=== PATIENT | male | born 1960 | race Caucasian/White ===

== ENCOUNTER → 2019-11-10 | Outpatient (CLI) | payer OTHER ==
[~2019-11-10] MED LIST: ALKATAB21 PO; IBUP80TA PO
--- NOTE | 2019-11-11 04:05 | REP ---
Clinical: Right shoulder pain. Technique: Internal rotation, external rotation, and Y view of the right shoulder. Findings: Subtle spurring at the acromioclavicular joint is appreciated. The glenohumeral joint appears intact and relatively normal for age. No periarticular calcifications. Subacromial space is normal. Surrounding soft tissues are unremarkable. Impression: Essentially age-appropriate examination. Mild spurring at the acromioclavicular joint. Electronically Signed by Luis Terry MD 11/11/2019 03:58 A
== END ==
LOC: M CLY 10:32
PROVIDERS: ATTEND Family Medicine
DX: M25.711 Osteophyte, right shoulder (principal)

== ENCOUNTER 2019-11-19 09:45 | Outpatient (RCR) | payer OTHER | END 2019-12-07 | LOC: M PT 09:45 | PROVIDERS: ATTEND Family Medicine | DX: Z51.89 Encounter for other specified aftercare (principal); M25.511 Pain in right shoulder ==

== ENCOUNTER → 2020-10-05 | Outpatient (REF) | payer OTHER ==
[2020-10-05 12:30] LABS: ALBUMIN 3.9 GM/DL (3.2-5.2); ALT/SGPT 37 U/L (12-78); BILIRUBIN,TOTAL 0.3 MG/DL (0.2-1.0); BLOOD UREA NITROGEN 9 MG/DL (7-18); CALCIUM LEVEL 9.4 MG/DL (8.8-10.2); CARBON DIOXIDE LEVEL 28 MEQ/L (21-32); CHLORIDE LEVEL 107 MEQ/L (98-107); CHOLESTEROL LEVEL 215 MG/DL (<200); CHOLESTEROL RISK RATIO 4.056 (<5); GLOMERULAR FILTRATION RATE > 60.0 (>49); GLUCOSE, FASTING 85 MG/DL (70-100); HDL CHOLESTEROL 53 MG/DL (>40); LDL CHOLESTEROL 135 MG/DL (<100); NON-HDL-C 162 MG/DL; POTASSIUM SERUM 3.7 MEQ/L (3.5-5.1); SODIUM LEVEL 140 MEQ/L (136-145); TOTAL PROTEIN 7.6 GM/DL (6.4-8.2); TRIGLYCERIDES LEVEL 136 MG/DL (<150)
== END ==
LOC: M SFHCCLAY 09:55
PROVIDERS: ATTEND Family Medicine
DX: Z82.49 Family history of ischemic heart disease and other diseases of the circulatory system (principal); Z13.220 Encounter for screening for lipoid disorders; I11.9 Hypertensive heart disease without heart failure; Z80.42 Family history of malignant neoplasm of prostate; Z12.5 Encounter for screening for malignant neoplasm of prostate

== ENCOUNTER → 2020-12-14 | Outpatient (REF) | payer OTHER ==
[2020-12-14 16:29] LABS: BLOOD UREA NITROGEN 7 MG/DL (7-18); CALCIUM LEVEL 9.5 MG/DL (8.8-10.2); CARBON DIOXIDE LEVEL 27 MEQ/L (21-32); CHLORIDE LEVEL 106 MEQ/L (98-107); CREATININE FOR GFR 0.72 MG/DL (0.70-1.30); GLOMERULAR FILTRATION RATE > 60.0 (>49); GLUCOSE, FASTING 88 MG/DL (70-100); POTASSIUM SERUM 4.6 MEQ/L (3.5-5.1); SODIUM LEVEL 139 MEQ/L (136-145)
== END ==
LOC: M SFHCCLAY 11:17
PROVIDERS: ATTEND Family Medicine
DX: I11.9 Hypertensive heart disease without heart failure (principal)

== ENCOUNTER → 2020-12-22 | Outpatient (CLI) | payer OTHER ==
--- NOTE | 2020-12-22 09:50 | REP ---
INDICATION: N63.0 LT BREAST LUMP. COMPARISON: None. TECHNIQUE: MLO and CC views bilateral breasts performed with tomosynthesis. Focused left breast ultrasound performed. FINDINGS: Mild ill-defined asymmetric fibroglandular tissue is present in the left retroareolar region. Otherwise no mass or clustered microcalcifications are seen bilaterally. Focused left breast ultrasound performed in the retroareolar region at the site of a palpable lump, present for 2 weeks. Vague hypoechoic tissue is seen in the retroareolar region approximately 0.9 x 0.6 x 1.0 cm. Elastography interrogation demonstrates average KPa value of 35.3. IMPRESSION: BIRADS/ACR category 2, benign. Mammographic and sonographic findings compatible with asymmetric mild left-sided gynecomastia. No suspicious mass or clustered microcalcifications. This mammogram was interpreted with the aid of an FDA-approved computer-aided detection system. The patient letter being requested is M2. RECOMMENDATION: Clinical correlation and follow-up recommended. A negative mammogram and ultrasound should not deter biopsy if there is a clinically suspicious palpable mass present. <Electronically signed by Boris Caballero > 12/22/20 [id number]
== END ==
LOC: M WHC 07:32
PROVIDERS: ATTEND Family Medicine
DX: N63.0 Unspecified lump in unspecified breast (principal)
CPT/HCPCS: 76642; 77066; G0279

== ENCOUNTER → 2021-02-23 | Outpatient (CLI) | payer OTHER ==
[~2021-02-23] MED LIST changes: +ACET325C5 PO; +ALLE12TA31 PO
--- NOTE | 2021-02-23 12:51 | REP ---
INDICATION: UNSPECIFIED LUMP IN THE SHOULDER UNSPECIFIED QUADRANT-LAB 1. COMPARISON: None. TECHNIQUE: TWO VIEWS OF THE LEFT CLAVICLE FINDINGS: There is an old healed left clavicle fracture IMPRESSION: No acute abnormality <Electronically signed by Gregg Kennedy > 02/23/21 124
[2021-02-23 14:58] LABS: ALBUMIN 3.9 GM/DL (3.2-5.2); ALT/SGPT 54 U/L (12-78); BILIRUBIN,TOTAL 0.4 MG/DL (0.2-1.0); BLOOD UREA NITROGEN 7 MG/DL (7-18); CALCIUM LEVEL 9.8 MG/DL (8.8-10.2); CARBON DIOXIDE LEVEL 27 MEQ/L (21-32); CHLORIDE LEVEL 107 MEQ/L (98-107); FOLLICLE STIMULATING HORMONE 14.1 mIU/mL (1.4-18.1); FREE T4 0.86 NG/DL (0.76-1.46); GLOMERULAR FILTRATION RATE > 60.0 (>49); GLUCOSE, FASTING 85 MG/DL (70-100); LUTEINIZING HORMONE 8.8 mIU/mL (1.5-9.3); POTASSIUM SERUM 4.5 MEQ/L (3.5-5.1); SODIUM LEVEL 139 MEQ/L (136-145); TOTAL PROTEIN 7.6 GM/DL (6.4-8.2)
== END ==
LOC: M PLALAB 09:14
PROVIDERS: ATTEND Surgery
DX: N63.20 Unspecified lump in the left breast, unspecified quadrant (principal)

== ENCOUNTER → 2021-02-23 | Outpatient (CLI) | payer OTHER ==
[2021-02-23 08:59] VITALS: BP 144/86
--- NOTE | 2021-03-01 20:28 | ROOPDOC ---
[facility] Report Of Operation Report of Operation DATE OF PROCEDURE: 02/23/21 DIAGNOSIS: left breast palpable mass and left nipple growth PROCEDURE: ultrasound guided biopsy of the left breast palpable mass with clip placement and excisional biopsy of the left breast nipple growth SURGEON: Isaias Barraza BLOOD LOSS: minimal COMPLICATIONS: none Lidocaine 1% LOT [id number] Expiration 08/2024 Sodium Bicarbonate 8.4% LOT [id number] Expiration 08/2021 Hydromark clip LOT [id number] Expiration 06/2023 SHAPE: 4 Bx device: BARD [id number] x10 cm LOT [id number] Expiration 10/2023 Informed consent was obtained. The most common risk and possible complications including bleeding, hematoma, bruising, infection, injury to surrounding structures were explained to the patient and the patient expressed understanding. Patient was placed on the bed in the supine position. Appropriate time out was done stating patients name, date of , and the procedure to be performed. Patient confirmed location of the palpable mass in the left retroareolar area at 1-2:00. This location was marked on the skin. Patient also confirmed location of the small left nipple growth which was getting caught on his shirts and causing pain. This was also marked. The left breast was prepped and draped in the usual fashion. The ultrasound was used to confirm the sonographic correlate to the palpable lesion in the left retroareolar area at 1-2:00. Procedure was started with the ultrasound guided biopsy. Plain Lidocaine 1% and 8.4% sodium bicarbonate 10:1 mix was used to anesthetize the skin, the biopsy site and tissues along the anticipated biopsy tract. Small skin incision was made with blade number 11. BARD Marquee 14G cannula with introducer ([id number]) was inserted through the incision and advanced under the ultrasound guidance to position immediately adjacent to the lesion. Next, the introducer was removed and BARD Marquee 14G biopsy device was places in the cannula. Pre-biopsy imaging, and post-biopsy imaging were captured. Five good core biopsies were taken at various levels of the lesion. Specimen was placed in formaldehyde, labeled with appropriate biopsy site and patients name, and sent to pathology for evaluation. Next, the biopsy device was withdrawn and a clip introducer was inserted into the biopsy site via the cannula. SHAPE 4 Hydromark clip was deployed under sonographic guidance. Post-clip placement image was captured. Manual pressure over the biopsy cavity and tract was held after the clip in troducer was withdrawn. No bleeding was noted upon removal of the pressure. The incision site was closed with Chromic suture since patients chest was very hairy and Steri Strips would not hold. At this time our attention was turned toward the left nipple bothersome growth. Additional local anesthetic was used to anesthetize the skin at the growth site. Scalpel was used to excised the lesion at the skin level. The tissue defect was closed with Chromic suture. Post-biopsy mammogram of the left breast was obtained and showed clip in expected position. Postprocedural dressing was placed. Patient tolerated procedure well. Discharge instructions were discussed with the patient and the patient expressed understanding. ISAIAS BARRAZA DO Mar 01, 2021 20:28
== END ==
LOC: M WHCPRO 06:09
PROVIDERS: ATTEND Surgery
DX: N62 Hypertrophy of breast (principal); L57.0 Actinic keratosis

== ENCOUNTER → 2021-04-05 | Outpatient (REF) | payer OTHER | LOC: M LAB REF 16:09 | PROVIDERS: ATTEND Physician Assistant | DX: D49.2 Neoplasm of unspecified behavior of bone, soft tissue, and skin (principal) ==

== ENCOUNTER → 2021-08-24 | Outpatient (CLI) | payer OTHER | LOC: M WHC 10:49 | PROVIDERS: ATTEND Surgery | DX: N63.20 Unspecified lump in the left breast, unspecified quadrant (principal) ==

== ENCOUNTER → 2022-02-19 | Outpatient (CLI) | payer OTHER | LOC: M RAD 12:23 | PROVIDERS: ATTEND Physician Assistant | DX: M25.521 Pain in right elbow (principal) ==

== ENCOUNTER → 2022-11-29 | Outpatient (REF) | payer OTHER ==
[2022-11-29 17:51] LABS: HEMATOCRIT 43.6 % (42.0-52.0); HEMOGLOBIN 14.4 g/dl (13.5-17.5); MEAN CORPUSCULAR HEMOGLOBIN 33.3 pg (27.0-33.0); MEAN CORPUSCULAR VOLUME 100.7 fl (80.0-96.0); PLATELET COUNT, AUTOMATED 236 10^3/uL (150-450); RED BLOOD COUNT 4.33 10^6/uL (4.30-6.10); WHITE BLOOD COUNT 8.6 10^3/uL (4.0-10.0)
[2022-11-29 18:00] LABS: ALBUMIN 3.7 G/DL (3.2-5.2); ALKALINE PHOSPHATASE 76 U/L (46-116); ALT/SGPT 32 U/L (7.0-40); AST/SGOT 28 U/L (<34); BILIRUBIN,TOTAL 0.6 MG/DL (0.3-1.2); BLOOD UREA NITROGEN 11 MG/DL (9-23); CALCIUM LEVEL 9.5 MG/DL (8.3-10.6); CARBON DIOXIDE LEVEL 28 MMOL/L (20-31); CHLORIDE LEVEL 104 MMOL/L (98-107); CHOLESTEROL LEVEL 250 MG/DL (<200); CREATININE FOR GFR 0.83 MG/DL (0.70-1.30); GLOMERULAR FILTRATION RATE > 60.0 (>49); GLUCOSE, FASTING 88 MG/DL (74-106); HDL CHOLESTEROL 62.4 MG/DL (>40); LDL CHOLESTEROL 162.8 MG/DL (<100); NON-HDL-C 187.6 MG/DL; POTASSIUM SERUM 4.1 MMOL/L (3.5-5.1); SODIUM LEVEL 136 MMOL/L (136-145); TOTAL PROTEIN 7.1 G/DL (5.7-8.2); TRIGLYCERIDES LEVEL 124 MG/DL (<150)
[2022-11-29 18:02] LABS: TOTAL 25(OH) VITAMIN D 13.6 NG/ML (20.0-100.0)
[2022-11-29 18:04] LABS: URIC ACID 8.1 MG/DL (3.7-9.2)
== END ==
LOC: M SFHCCLAY 13:11
PROVIDERS: ATTEND Nurse Practitioner Family
DX: Z87.39 Personal history of other diseases of the musculoskeletal system and connective tissue (principal); M24.549 Contracture, unspecified hand; I10 Essential (primary) hypertension; E55.9 Vitamin D deficiency, unspecified; Z80.42 Family history of malignant neoplasm of prostate; F17.211 Nicotine dependence, cigarettes, in remission; N62 Hypertrophy of breast

== ENCOUNTER → 2023-03-08 | Outpatient (REF) | payer OTHER ==
[2023-03-08 17:32] LABS: BASO # 0.1 10^3/uL (0.0-0.2); BASO % 0.6 % (0.0-1.0); EOS # 0.1 10^3/uL (0.0-0.5); EOS % 1.1 % (0.0-3.0); HEMATOCRIT 44.5 % (42.0-52.0); HEMOGLOBIN 14.7 g/dl (13.5-17.5); LYMPH # 1.6 10^3/uL (1.5-5.0); LYMPH % 19.2 % (24.0-44.0); MEAN CORPUSCULAR HEMOGLOBIN 33.9 pg (27.0-33.0); MEAN CORPUSCULAR VOLUME 102.5 fl (80.0-96.0); MONO # 0.9 10^3/uL (0.0-0.8); MONO % 10.2 % (2.0-8.0); NEUTROPHILS # 5.8 10^3/uL (1.5-8.5); NEUTROPHILS % 68.5 % (36.0-66.0); PLATELET COUNT, AUTOMATED 264 10^3/uL (150-450); RED BLOOD COUNT 4.34 10^6/uL (4.30-6.10); WHITE BLOOD COUNT 8.5 10^3/uL (4.0-10.0)
[2023-03-08 18:02] LABS: ALBUMIN 3.7 G/DL (3.2-5.2); ALKALINE PHOSPHATASE 88 U/L (46-116); ALT/SGPT 33 U/L (7.0-40); AST/SGOT 23 U/L (<34); BILIRUBIN,TOTAL 0.7 MG/DL (0.3-1.2); BLOOD UREA NITROGEN 9 MG/DL (9-23); CALCIUM LEVEL 9.8 MG/DL (8.3-10.6); CARBON DIOXIDE LEVEL 25 MMOL/L (20-31); CHLORIDE LEVEL 103 MMOL/L (98-107); CREATININE FOR GFR 0.86 MG/DL (0.70-1.30); GLOMERULAR FILTRATION RATE > 60.0 (>49); GLUCOSE, FASTING 90 MG/DL (74-106); MAGNESIUM LEVEL 2.1 MG/DL (1.8-2.4); POTASSIUM SERUM 4.3 MMOL/L (3.5-5.1); SODIUM LEVEL 138 MMOL/L (136-145)
== END ==
LOC: M SFHCCAPE 09:46
PROVIDERS: ATTEND Physician Assistant
DX: R25.2 Cramp and spasm (principal)

== ENCOUNTER 2023-06-15 09:28 | Emergency (ER) | payer OTHER ==
[~2023-06-15 09:28] MED LIST changes: +ANOR1AER INH; +FLON1SPR; +FLUT22IN INH; +META0.52 PO; +MUCI1TAB16 PO; +PROA1AER2 INH
[2023-06-15 10:45] LABS: BASO % 0.2 % (0.0-1.0); EOS # 0.1 10^3/uL (0.0-0.5); EOS % 0.6 % (0.0-3.0); HEMATOCRIT 44.2 % (42.0-52.0); HEMOGLOBIN 15.1 g/dl (13.5-17.5); LYMPH # 1.9 10^3/uL (1.5-5.0); LYMPH % 17.5 % (24.0-44.0); MEAN CORPUSCULAR HEMOGLOBIN 34.1 pg (27.0-33.0); MEAN CORPUSCULAR HGB CONC 34.2 g/dl (32.0-36.5); MEAN CORPUSCULAR VOLUME 99.8 fl (80.0-96.0); MONO % 9.3 % (2.0-8.0); NEUTROPHILS # 7.9 10^3/uL (1.5-8.5); NEUTROPHILS % 71.6 % (36.0-66.0); PLATELET COUNT, AUTOMATED 327 10^3/uL (150-450); RED BLOOD COUNT 4.43 10^6/uL (4.30-6.10)
[2023-06-15 10:55] LABS: ALBUMIN 3.5 G/DL (3.2-5.2); ALKALINE PHOSPHATASE 73 U/L (46-116); ALT/SGPT 82 U/L (7.0-40); AST/SGOT 48 U/L (<34); BILIRUBIN,DIRECT 0.1 MG/DL (<0.4); BILIRUBIN,TOTAL 0.5 MG/DL (0.3-1.2); BLOOD UREA NITROGEN 19 MG/DL (9-23); CALCIUM LEVEL 9.5 MG/DL (8.3-10.6); CARBON DIOXIDE LEVEL 24 MMOL/L (20-31); CHLORIDE LEVEL 105 MMOL/L (98-107); CREATININE FOR GFR 0.72 MG/DL (0.70-1.30); GLOMERULAR FILTRATION RATE > 60.0 (>49); GLUCOSE, FASTING 88 MG/DL (74-106); POTASSIUM SERUM 4.3 MMOL/L (3.5-5.1); SODIUM LEVEL 137 MMOL/L (136-145); TOTAL PROTEIN 6.9 G/DL (5.7-8.2)
[2023-06-15 10:57] LABS: THYROID STIMULATING HORMONE 3.246 uIU/ML (0.55-4.78); THYROXINE (T4) 6.6 UG/DL (4.5-10.9)
[2023-06-15 11:08] LABS: INR 0.95; PROTHROMBIN TIME 12.4 SECONDS (12.5-14.5)
[2023-06-15 11:57] LABS: MAGNESIUM LEVEL 2.3 MG/DL (1.8-2.4)
[2023-06-15 12:44] LABS: CK-MB VALUE MASS < 1.0 NG/ML (<3.6); CPK CREATINE PHOSPHOKINASE 47 U/L (46-171); MB/CK RELATIVE INDEX 2.12 (< OR =4)
[2023-06-15 13:38] VITALS: BP 197/91; TEMP 98; O2SAT 99
== END 2023-06-15 13:40 | disposition home or self-care (01) ==
LOC: M ED 09:28
DX: R00.1 Bradycardia, unspecified (principal); I49.1 Atrial premature depolarization; J44.9 Chronic obstructive pulmonary disease, unspecified; Z87.891 Personal history of nicotine dependence; Z79.52 Long term (current) use of systemic steroids; Z79.899 Other long term (current) drug therapy

== ENCOUNTER → 2023-08-06 | Outpatient (REF) | payer OTHER | LOC: M LAB REF 13:23 | PROVIDERS: ATTEND Internal Medicine Pulmonary Disease | DX: J44.1 Chronic obstructive pulmonary disease with (acute) exacerbation (principal); B95.3 Streptococcus pneumoniae as the cause of diseases classified elsewhere ==

== ENCOUNTER → 2023-09-04 | Outpatient (CLI) | payer OTHER | LOC: M RAD 14:33 | PROVIDERS: ATTEND Internal Medicine Pulmonary Disease | DX: Z13.820 Encounter for screening for osteoporosis (principal); Z87.891 Personal history of nicotine dependence ==

== ENCOUNTER → 2023-09-05 | Outpatient (REF) | payer OTHER | LOC: M LAB REF 16:42 | PROVIDERS: ATTEND Internal Medicine Pulmonary Disease | DX: J44.1 Chronic obstructive pulmonary disease with (acute) exacerbation (principal) ==

== ENCOUNTER → 2023-09-20 | Outpatient (REF) | payer OTHER ==
[2023-09-20 17:22] LABS: ALBUMIN 3.6 G/DL (3.2-5.2); ALKALINE PHOSPHATASE 52 U/L (46-116); ALT/SGPT 53 U/L (7.0-40); AST/SGOT 28 U/L (<34); BILIRUBIN,TOTAL 0.6 MG/DL (0.3-1.2); BLOOD UREA NITROGEN 20 MG/DL (9-23); CALCIUM LEVEL 9.5 MG/DL (8.3-10.6); CARBON DIOXIDE LEVEL 28 MMOL/L (20-31); CHLORIDE LEVEL 105 MMOL/L (98-107); CREATININE FOR GFR 0.91 MG/DL (0.70-1.30); GLOMERULAR FILTRATION RATE > 60.0 (>49); GLUCOSE, FASTING 101 MG/DL (74-106); POTASSIUM SERUM 4.7 MMOL/L (3.5-5.1); SODIUM LEVEL 138 MMOL/L (136-145); TOTAL PROTEIN 6.8 G/DL (5.7-8.2)
[2023-09-20 17:59] LABS: BASO % 0.2 % (0.0-1.0); EOS % 0.2 % (0.0-3.0); HEMATOCRIT 44.2 % (42.0-52.0); HEMOGLOBIN 14.6 g/dl (13.5-17.5); LYMPH # 1.3 10^3/uL (1.5-5.0); LYMPH % 12.9 % (24.0-44.0); MEAN CORPUSCULAR HEMOGLOBIN 34.6 pg (27.0-33.0); MEAN CORPUSCULAR VOLUME 104.7 fl (80.0-96.0); MONO # 0.6 10^3/uL (0.0-0.8); MONO % 5.8 % (2.0-8.0); NEUTROPHILS % 80.4 % (36.0-66.0); PLATELET COUNT, AUTOMATED 248 10^3/uL (150-450); RED BLOOD COUNT 4.22 10^6/uL (4.30-6.10); WHITE BLOOD COUNT 9.9 10^3/uL (4.0-10.0)
== END ==
LOC: M SFHCCLAY 12:20
PROVIDERS: ATTEND Nurse Practitioner Family
DX: Z01.818 Encounter for other preprocedural examination (principal)

== ENCOUNTER 2023-10-08 05:59 | Day surgery (SDC) | payer OTHER ==
[~2023-10-08] VITALS: Ht 182.9 cm; Wt 92.7 kg
[~2023-10-08 05:59] MED LIST changes: +FLUT12AE3 IH
[2023-10-08] MEDS ORDERED: SUGAMMADEX SODIUM 500 MG/5 ML VIAL (BRIDION) As Ordered ONE (07:14)
[2023-10-08] MEDS ORDERED: LIDOCAINE 2% 100MG/5ML SDV (FOR ANES.) As Ordered ONE (07:14)
[2023-10-08] MEDS ORDERED: fentaNYL 100 MCG/2 ML INJECTION As Ordered ONE (07:14)
[2023-10-08] MEDS ORDERED: propofoL 200 MG/20 ML VIAL As Ordered ONE (07:14)
[2023-10-08] MEDS ORDERED: ROCURONIUM BROMIDE 50MG/5ML VIAL As Ordered ONE (07:14)
[2023-10-08] MEDS ORDERED: MIDAZOLAM INJ 2MG/2ML VIAL As Ordered ONE (07:14)
[2023-10-08] MEDS ORDERED: KETOROLAC 60MG 2ML VIAL As Ordered ONE (07:15)
[2023-10-08] MEDS ORDERED: ONDANSETRON 4MG 2ML VIAL As Ordered ONE (07:15)
[2023-10-08] MEDS: LR 1,000 ML IV SCH (07:15)
[2023-10-08] MEDS: ceFAZolin SOD 2 GM in IV 1 EA IV ONE (07:43)
[2023-10-08] MEDS ORDERED: ACETAMINOPHEN 1000MG 100ML IV BAG As Ordered ONE (07:49)
[2023-10-08] MEDS ORDERED: HYDROmorphone HCL 2MG/ML 1ML VIAL As Ordered ONE (08:03)
[2023-10-08] MEDS ORDERED: fentaNYL 100 MCG/2 ML INJECTION IV PRN (09:45)
[2023-10-08] MEDS ORDERED: LR 1,000 ML IV SCH (09:45)
[2023-10-08] MEDS ORDERED: HYDROMORPHONE HCL 0.5 MG/ 0.5 ML SYRINGE IV PRN (09:45)
[2023-10-08] MEDS: ONDANSETRON 4MG 2ML VIAL IV PRN (10:33)
[2023-10-08] MEDS: oxyCODONE 5MG TAB PO PRN (10:33)
[2023-10-08 11:15] VITALS: BP 169/79; TEMP 97; O2SAT 96
== END 2023-10-08 11:25 | disposition home or self-care (01) ==
LOC: M SDC 05:59
PROVIDERS: ATTEND Surgery
DX: K40.00 Bilateral inguinal hernia, with obstruction, without gangrene, not specified as recurrent (principal); K42.0 Umbilical hernia with obstruction, without gangrene; I10 Essential (primary) hypertension; J44.9 Chronic obstructive pulmonary disease, unspecified; M10.9 Gout, unspecified; Z79.899 Other long term (current) drug therapy; Z79.51 Long term (current) use of inhaled steroids
CPT/HCPCS: 49614; 49650; C1781; J0131; J0665; J0690; J1100; J1170; J1885; J2250; J2405; J3010

== ENCOUNTER → 2023-12-26 | Outpatient (REF) | payer OTHER ==
[2023-12-26 18:38] LABS: URIC ACID 9.1 MG/DL (3.7-9.2)
[2023-12-26 18:45] LABS: ALBUMIN 3.7 G/DL (3.2-5.2); ALKALINE PHOSPHATASE 72 U/L (46-116); ALT/SGPT 33 U/L (7.0-40); AST/SGOT 18 U/L (<34); BILIRUBIN,TOTAL 0.6 MG/DL (0.3-1.2); BLOOD UREA NITROGEN 15 MG/DL (9-23); CALCIUM LEVEL 10.7 MG/DL (8.3-10.6); CARBON DIOXIDE LEVEL 30 MMOL/L (20-31); CHLORIDE LEVEL 104 MMOL/L (98-107); CHOLESTEROL LEVEL 278 MG/DL (<200); CHOLESTEROL RISK RATIO 4.22 (<5); CREATININE FOR GFR 0.99 MG/DL (0.70-1.30); GLOMERULAR FILTRATION RATE > 60.0 (>49); GLUCOSE, FASTING 99 MG/DL (74-106); HDL CHOLESTEROL 65.8 MG/DL (>40); LDL CHOLESTEROL 170.8 MG/DL (<100); NON-HDL-C 212.2 MG/DL; POTASSIUM SERUM 4.8 MMOL/L (3.5-5.1); SODIUM LEVEL 139 MMOL/L (136-145); TOTAL PROTEIN 6.9 G/DL (5.7-8.2); TRIGLYCERIDES LEVEL 207 MG/DL (<150)
[2023-12-26 18:58] LABS: HEMOGLOBIN A1c 5.2 % (4.0-6.0)
== END ==
LOC: M SFHCCLAY 10:00
PROVIDERS: ATTEND Nurse Practitioner Family
DX: J43.9 Emphysema, unspecified (principal); M24.549 Contracture, unspecified hand; Z87.39 Personal history of other diseases of the musculoskeletal system and connective tissue; I10 Essential (primary) hypertension; E78.5 Hyperlipidemia, unspecified; R74.8 Abnormal levels of other serum enzymes; Z80.42 Family history of malignant neoplasm of prostate

== ENCOUNTER → 2024-05-13 | Outpatient (REF) | payer MEDICARE, OTHER | LOC: M LAB REF 12:34 | PROVIDERS: ATTEND Internal Medicine Pulmonary Disease | DX: J44.9 Chronic obstructive pulmonary disease, unspecified (principal) ==

== ENCOUNTER → 2024-06-27 | Outpatient (REF) | payer MEDICARE | LOC: M SFHCCLAY 10:00 | PROVIDERS: ATTEND Nurse Practitioner Family | DX: J43.9 Emphysema, unspecified (principal); M24.549 Contracture, unspecified hand; Z87.39 Personal history of other diseases of the musculoskeletal system and connective tissue; I10 Essential (primary) hypertension; E78.5 Hyperlipidemia, unspecified; R74.8 Abnormal levels of other serum enzymes; Z80.42 Family history of malignant neoplasm of prostate; F51.01 Primary insomnia ==

== ENCOUNTER → 2024-07-14 | Outpatient (REF) | payer MEDICARE ==
[2024-07-14 18:55] LABS: ALBUMIN 3.4 G/DL (3.2-5.2); ALKALINE PHOSPHATASE 86 U/L (40-129); ALT/SGPT 47 U/L (7.0-40); AST/SGOT 26 U/L (<34); BILIRUBIN,TOTAL 0.6 MG/DL (0.3-1.2); BLOOD UREA NITROGEN 15 MG/DL (9-23); CARBON DIOXIDE LEVEL 27 MMOL/L (20-31); CHLORIDE LEVEL 105 MMOL/L (98-107); CHOLESTEROL LEVEL 217 MG/DL (<200); CREATININE FOR GFR 0.86 MG/DL (0.70-1.30); GLOMERULAR FILTRATION RATE > 60.0 (>49); GLUCOSE, FASTING 94 MG/DL (74-106); HDL CHOLESTEROL 65.6 MG/DL (>40); NON-HDL-C 151.4 MG/DL; POTASSIUM SERUM 4.2 MMOL/L (3.5-5.1); SODIUM LEVEL 142 MMOL/L (136-145); TOTAL PROTEIN 7.1 G/DL (5.7-8.2); TRIGLYCERIDES LEVEL 252 MG/DL (<150)
== END ==
LOC: M SFHCCLAY 12:14
PROVIDERS: ATTEND Nurse Practitioner Family
DX: I10 Essential (primary) hypertension (principal); J43.9 Emphysema, unspecified; M24.549 Contracture, unspecified hand; Z87.39 Personal history of other diseases of the musculoskeletal system and connective tissue; E78.5 Hyperlipidemia, unspecified; R74.8 Abnormal levels of other serum enzymes; Z80.42 Family history of malignant neoplasm of prostate; F51.01 Primary insomnia

== ENCOUNTER → 2024-09-01 | Outpatient (REF) | payer MEDICARE ==
[2024-09-01 17:31] LABS: BASO # 0.1 10^3/uL (0.0-0.2); BASO % 0.6 % (0.0-1.0); EOS # 0.1 10^3/uL (0.0-0.5); EOS % 0.8 % (0.0-3.0); HEMATOCRIT 38.6 % (42.0-52.0); LYMPH # 1.9 10^3/uL (1.5-5.0); LYMPH % 18.1 % (24.0-44.0); MEAN CORPUSCULAR HEMOGLOBIN 33.5 pg (27.0-33.0); MEAN CORPUSCULAR HGB CONC 33.7 g/dl (32.0-36.5); MEAN CORPUSCULAR VOLUME 99.5 fl (80.0-96.0); MONO # 1.1 10^3/uL (0.0-0.8); MONO % 10.3 % (2.0-8.0); NEUTROPHILS # 7.4 10^3/uL (1.5-8.5); NEUTROPHILS % 69.9 % (36.0-66.0); PLATELET COUNT, AUTOMATED 260 10^3/uL (150-450); RED BLOOD COUNT 3.88 10^6/uL (4.30-6.10); WHITE BLOOD COUNT 10.5 10^3/uL (4.0-10.0)
[2024-09-01 17:36] LABS: ALBUMIN 3.2 G/DL (3.2-5.2); ALKALINE PHOSPHATASE 91 U/L (40-129); ALT/SGPT 31 U/L (7.0-40); AST/SGOT 22 U/L (<34); BILIRUBIN,TOTAL 0.5 MG/DL (0.3-1.2); BLOOD UREA NITROGEN 11 MG/DL (9-23); CARBON DIOXIDE LEVEL 25 MMOL/L (20-31); CHLORIDE LEVEL 107 MMOL/L (98-107); CHOLESTEROL LEVEL 177 MG/DL (<200); CHOLESTEROL RISK RATIO 3.68 (<5); CREATININE FOR GFR 0.77 MG/DL (0.70-1.30); GLOMERULAR FILTRATION RATE > 60.0 (>49); GLUCOSE, FASTING 81 MG/DL (74-106); LDL CHOLESTEROL 72.8 MG/DL (<100); MAGNESIUM LEVEL 1.8 MG/DL (1.8-2.4); POTASSIUM SERUM 3.8 MMOL/L (3.5-5.1); SODIUM LEVEL 140 MMOL/L (136-145); TOTAL PROTEIN 6.5 G/DL (5.7-8.2); TRIGLYCERIDES LEVEL 281 MG/DL (<150)
[2024-09-01 17:37] LABS: THYROID STIMULATING HORMONE 2.292 uIU/ML (0.55-4.78)
[2024-09-01 17:39] LABS: FREE T4 1.05 NG/DL (0.89-1.76)
== END ==
LOC: M SFHCCLAY 13:00
PROVIDERS: ATTEND Nurse Practitioner Family
DX: R00.2 Palpitations (principal); R19.7 Diarrhea, unspecified; E78.00 Pure hypercholesterolemia, unspecified

== ENCOUNTER → 2024-09-09 | Outpatient (REF) | payer MEDICARE ==
[2024-09-09 20:32] LABS: FERRITIN 333.6 NG/ML (10.5-307.3); FOLATE 14.3 NG/ML (>5.4)
[2024-09-09 20:34] LABS: PERCENT SATURATION 46.9 % (19.7-50.0)
[2024-09-09 20:36] LABS: BASO # 0.1 10^3/uL (0.0-0.2); BASO % 0.5 % (0.0-1.0); EOS # 0.1 10^3/uL (0.0-0.5); EOS % 0.4 % (0.0-3.0); HEMATOCRIT 42.6 % (42.0-52.0); HEMOGLOBIN 13.9 g/dl (13.5-17.5); LYMPH # 1.8 10^3/uL (1.5-5.0); LYMPH % 12.7 % (24.0-44.0); MEAN CORPUSCULAR HEMOGLOBIN 33.3 pg (27.0-33.0); MEAN CORPUSCULAR HGB CONC 32.6 g/dl (32.0-36.5); MEAN CORPUSCULAR VOLUME 102.2 fl (80.0-96.0); MONO # 0.6 10^3/uL (0.0-0.8); MONO % 4.5 % (2.0-8.0); NEUTROPHILS # 11.3 10^3/uL (1.5-8.5); NEUTROPHILS % 81.3 % (36.0-66.0); PLATELET COUNT, AUTOMATED 313 10^3/uL (150-450); RED BLOOD COUNT 4.17 10^6/uL (4.30-6.10); WHITE BLOOD COUNT 13.9 10^3/uL (4.0-10.0)
== END ==
LOC: M SFHCCLAY 11:54
PROVIDERS: ATTEND Nurse Practitioner Family
DX: D64.9 Anemia, unspecified (principal)

== ENCOUNTER → 2024-09-11 | Outpatient (REF) | payer MEDICARE ==
[~2024-09-11] MED LIST changes: +ACET32TAB PO; +ALLO10TA PO; +ATOR40TA75 PO; +MONT10TA97 PO; +OSTE5TAB PO; +PROBCAP14 PO
[2024-09-11 19:23] LABS: BASO # 0.1 10^3/uL (0.0-0.2); BASO % 0.4 % (0.0-1.0); EOS # 0.1 10^3/uL (0.0-0.5); EOS % 0.5 % (0.0-3.0); HEMATOCRIT 44.3 % (42.0-52.0); HEMOGLOBIN 14.8 g/dl (13.5-17.5); LYMPH # 2.2 10^3/uL (1.5-5.0); LYMPH % 11.7 % (24.0-44.0); MEAN CORPUSCULAR HEMOGLOBIN 34.6 pg (27.0-33.0); MEAN CORPUSCULAR HGB CONC 33.4 g/dl (32.0-36.5); MEAN CORPUSCULAR VOLUME 103.5 fl (80.0-96.0); MONO # 1.3 10^3/uL (0.0-0.8); MONO % 6.8 % (2.0-8.0); NEUTROPHILS # 14.9 10^3/uL (1.5-8.5); PLATELET COUNT, AUTOMATED 284 10^3/uL (150-450); RED BLOOD COUNT 4.28 10^6/uL (4.30-6.10); WHITE BLOOD COUNT 18.6 10^3/uL (4.0-10.0)
[2024-09-11 19:30] LABS: ERYTHROCYTE SEDIMENTATION RATE 44 mm/hr (0-20)
[2024-09-11 19:55] LABS: C REACTIVE PROTEIN QUANTITATIV < 0.50 MG/DL (<1.0)
[2024-09-11 19:57] LABS: RHEUMATOID FACTOR QUANT < 3.5 IU/ML (<14)
[2024-09-11 19:58] LABS: THYROID STIMULATING HORMONE 1.416 uIU/ML (0.55-4.78)
[2024-09-11 19:59] LABS: FREE T4 1.22 NG/DL (0.89-1.76)
[2024-09-13 09:52] LABS: PROTEIN, TOTAL SO 7.1 g/dL (6.1-8.1)
[2024-09-15 21:07] LABS: ANA PATTERN Nuclear, Speckled (NEGATIVE); ANA SCREEN, IFA POSITIVE (NEGATIVE); ANA TITER 1:40 titer (<1:40)
[2024-09-16 13:21] LABS: ALBUMIN SO 4.2 g/dL (3.8-4.8); ALPHA 1 GLOBULINS SO 0.3 g/dL (0.2-0.3); BETA 2 GLOBULIN SO 0.5 g/dL (0.2-0.5); BETA GLOBULIN SO 0.5 g/dL (0.4-0.6); GAMMA GLOBULINS SO 0.7 g/dL (0.8-1.7)
[2024-09-16 19:47] LABS: LYME TOTAL ANTIBODY CIA <= 0.90 Index (<=0.90)
[2024-09-18 13:48] LABS: FACTOR V LEIDEN FOR MEDINET NEGATIVE
== END ==
LOC: M SFHCCLAY 11:22
PROVIDERS: ATTEND Nurse Practitioner Family
DX: M25.50 Pain in unspecified joint (principal); D72.829 Elevated white blood cell count, unspecified; Z83.2 Family history of diseases of the blood and blood-forming organs and certain disorders involving the immune mechanism; Z79.899 Other long term (current) drug therapy

== ENCOUNTER → 2024-09-30 | Outpatient (REF) | payer MEDICARE ==
[2024-09-30 17:51] LABS: BASO % 0.3 % (0.0-1.0); EOS % 0.4 % (0.0-3.0); HEMOGLOBIN 13.9 g/dl (13.5-17.5); LYMPH # 1.7 10^3/uL (1.5-5.0); LYMPH % 16.1 % (24.0-44.0); MEAN CORPUSCULAR HEMOGLOBIN 34.2 pg (27.0-33.0); MEAN CORPUSCULAR HGB CONC 33.9 g/dl (32.0-36.5); MEAN CORPUSCULAR VOLUME 100.7 fl (80.0-96.0); MONO # 1.2 10^3/uL (0.0-0.8); MONO % 11.8 % (2.0-8.0); NEUTROPHILS # 7.3 10^3/uL (1.5-8.5); PLATELET COUNT, AUTOMATED 243 10^3/uL (150-450); RED BLOOD COUNT 4.07 10^6/uL (4.30-6.10); WHITE BLOOD COUNT 10.2 10^3/uL (4.0-10.0)
[2024-09-30 17:57] LABS: ERYTHROCYTE SEDIMENTATION RATE 31 mm/hr (0-20)
== END ==
LOC: M SFHCCLAY 10:16
PROVIDERS: ATTEND Physician Assistant
DX: D72.829 Elevated white blood cell count, unspecified (principal)

== ENCOUNTER → 2024-10-07 | Outpatient (CLI) | payer MEDICARE | LOC: M RAD 10:33 | PROVIDERS: ATTEND Internal Medicine Pulmonary Disease | DX: Z12.2 Encounter for screening for malignant neoplasm of respiratory organs (principal); Z87.891 Personal history of nicotine dependence ==

== ENCOUNTER → 2024-10-09 | Outpatient (CLI) | payer MEDICARE ==
[~2024-10-09] MED LIST changes: +GASTROGRAFIN SOLUTION 30ML As Ordered ONE
== END ==
LOC: M RAD 11:37
PROVIDERS: ATTEND Nurse Practitioner Family
DX: R19.7 Diarrhea, unspecified (principal); R10.9 Unspecified abdominal pain; N20.0 Calculus of kidney; M43.16 Spondylolisthesis, lumbar region
CPT/HCPCS: 74176; Q9963

== ENCOUNTER → 2024-12-30 | Outpatient (REF) | payer MEDICARE ==
[~2024-12-30] MED LIST changes: -GASTROGRAFIN SOLUTION 30ML As Ordered ONE
[2025-01-05 03:11] LABS: PANCREATIC ELASTASE STOOL > 800 mcg/g (>200)
[2025-01-08 02:59] LABS: CALPROTECTIN STOOL 52 mcg/g (<50)
== END ==
LOC: M LAB REF 11:39
PROVIDERS: ATTEND Physician Assistant
DX: K52.9 Noninfective gastroenteritis and colitis, unspecified (principal)

== ENCOUNTER → 2025-01-13 | Outpatient (REF) | payer MEDICARE ==
[2025-01-13 19:44] LABS: BASO # 0.1 10^3/uL (0.0-0.2); BASO % 0.4 % (0.0-1.0); EOS # 0.1 10^3/uL (0.0-0.5); EOS % 0.7 % (0.0-3.0); LYMPH # 1.8 10^3/uL (1.5-5.0); LYMPH % 14.2 % (24.0-44.0); MONO # 0.9 10^3/uL (0.0-0.8); MONO % 7.3 % (2.0-8.0); NEUTROPHILS # 9.9 10^3/uL (1.5-8.5); NEUTROPHILS % 76.9 % (36.0-66.0); PLATELET COUNT, AUTOMATED 227 10^3/uL (150-450)
[2025-01-13 20:01] LABS: ERYTHROCYTE SEDIMENTATION RATE 32 mm/hr (0-20)
[2025-01-13 20:07] LABS: ALT/SGPT 55 U/L (7.0-40); AST/SGOT 31 U/L (<34); C REACTIVE PROTEIN QUANTITATIV < 0.50 MG/DL (<1.0); CREATININE FOR GFR 0.94 MG/DL (0.70-1.30); GLOMERULAR FILTRATION RATE 90.0 (>49)
[2025-01-13 20:09] LABS: COMPLEMENT C4 56.8 MG/DL (12-36)
[2025-01-13 20:10] LABS: RHEUMATOID FACTOR QUANT 4.8 IU/ML (<14)
[2025-01-13 20:44] LABS: HEPATITIS C VIRUS ABY INDEX 0.08 INDEX (<0.8)
[2025-01-17 01:28] LABS: ANTI CENTROMERE ANTIBODY <1.0 NEG AI (<1.0 NEG); ANTI SCLERODERMA ANTIBODIES <1.0 NEG AI (<1.0 NEG); ANTI SMITH(Sm) AB <1.0 NEG AI (<1.0 NEG); ANTI-U1 RNP AB <1.0 NEG AI (<1.0 NEG); SSA SJOGRENS A <1.0 NEG AI (<1.0 NEG); SSB SJOGRENS B <1.0 NEG AI (<1.0 NEG)
[2025-01-18 01:53] LABS: ANTI-SACCHAROMYCES CEREV. IgA 10.7 U (<=20.0); ANTI-SACCHAROMYCES CEREV. IgG 7.1 U (<=20.0)
[2025-01-20 05:38] LABS: ANTI DS-DNA AB NEGATIVE (NEGATIVE)
[2025-01-20 13:43] LABS: ANTI-HISTONE ANTIBODIES < 1.0 U (<1.0)
[2025-01-21 19:28] LABS: IMMUNOGLOBULIN A CELIAC 331 mg/dL (70-320); t-TRANSGLUTAMINASE(tTG) IgA < 1.0 U/mL (<15.0); t-TRANSGLUTAMINASE(tTG) IgG < 1.0 U/mL (<15.0)
== END ==
LOC: M LABDRAWC 17:50
PROVIDERS: ATTEND Internal Medicine Rheumatology
DX: M25.50 Pain in unspecified joint (principal); R70.0 Elevated erythrocyte sedimentation rate; R76.0 Raised antibody titer; R21 Rash and other nonspecific skin eruption; Z11.59 Encounter for screening for other viral diseases

== ENCOUNTER 2025-01-28 17:49 | Emergency (ER) | payer MEDICARE ==
[~2025-01-28] VITALS: Ht 182.9 cm; Wt 87.5 kg
[~2025-01-28 17:49] MED LIST changes: -FLON1SPR; +FLON1SPR NARES
[2025-01-28 17:52] VITALS: TEMP 97.7
[2025-01-28 20:22] LABS: BASO # 0.0 10^3/uL (0.0-0.2); BASO % 0.4 % (0.0-1.0); EOS # 0.0 10^3/uL (0.0-0.5); EOS % 0.3 % (0.0-3.0); LYMPH # 1.7 10^3/uL (1.5-5.0); LYMPH % 16.6 % (24.0-44.0); MONO # 1.2 10^3/uL (0.0-0.8); MONO % 12.0 % (2.0-8.0); NEUTROPHILS # 7.1 10^3/uL (1.5-8.5); NEUTROPHILS % 70.3 % (36.0-66.0); PLATELET COUNT, AUTOMATED 272 10^3/uL (150-450)
[2025-01-28 20:28] LABS: ERYTHROCYTE SEDIMENTATION RATE 22 mm/hr (0-20)
[2025-01-28 20:51] LABS: ALT/SGPT 48 U/L (7.0-40); AST/SGOT 42 U/L (<34); C REACTIVE PROTEIN QUANTITATIV < 0.50 MG/DL (<1.0); CALCIUM LEVEL 9.9 MG/DL (8.3-10.6); CARBON DIOXIDE LEVEL 25 MMOL/L (20-31); CHLORIDE LEVEL 97 MMOL/L (98-107); CREATININE FOR GFR 1.61 MG/DL (0.70-1.30); GLOMERULAR FILTRATION RATE 47.2 (>49); POTASSIUM SERUM 3.0 MMOL/L (3.5-5.1); SODIUM LEVEL 139 MMOL/L (136-145)
[2025-01-28] MEDS: NS (Normal Saline) 0.9% 1,000 ML IV ONE (21:10)
[2025-01-28] MEDS ORDERED: ISOVUE-370 76% 100 ML VIAL As Ordered ONE (21:12)
[2025-01-28 23:00] VITALS: BP 144/75; O2SAT 97
== END 2025-01-28 23:26 | disposition home or self-care (01) ==
LOC: M ED 17:49
DX: R19.7 Diarrhea, unspecified (principal); Z79.1 Long term (current) use of non-steroidal anti-inflammatories (NSAID); Z79.51 Long term (current) use of inhaled steroids; Z79.899 Other long term (current) drug therapy

== ENCOUNTER 2025-01-30 16:23 | Inpatient (IN) | payer MEDICARE ==
[~2025-01-30] VITALS: Ht 182.9 cm; Wt 90.5 kg
[2025-01-30] MEDS: NS (Normal Saline) 0.9% 1,000 ML IV ONE (18:16)
[2025-01-30 18:46] LABS: BASO # 0.0 10^3/uL (0.0-0.2); BASO % 0.3 % (0.0-1.0); EOS # 0.0 10^3/uL (0.0-0.5); EOS % 0.2 % (0.0-3.0); LYMPH # 1.2 10^3/uL (1.5-5.0); LYMPH % 10.3 % (24.0-44.0); MONO # 1.1 10^3/uL (0.0-0.8); MONO % 9.0 % (2.0-8.0); NEUTROPHILS # 9.5 10^3/uL (1.5-8.5); NEUTROPHILS % 79.9 % (36.0-66.0); PLATELET COUNT, AUTOMATED 270 10^3/uL (150-450)
[2025-01-30 18:52] LABS: C REACTIVE PROTEIN QUANTITATIV < 0.50 MG/DL (<1.0); ERYTHROCYTE SEDIMENTATION RATE 31 mm/hr (0-20)
[2025-01-30 18:58] LABS: ALT/SGPT 52 U/L (7.0-40); AST/SGOT 52 U/L (<34); CALCIUM LEVEL 9.3 MG/DL (8.3-10.6); CARBON DIOXIDE LEVEL 26 MMOL/L (20-31); CHLORIDE LEVEL 94 MMOL/L (98-107); CREATININE FOR GFR 1.13 MG/DL (0.70-1.30); GLOMERULAR FILTRATION RATE 72.1 (>49); POTASSIUM SERUM 2.4 MMOL/L (3.5-5.1); SODIUM LEVEL 135 MMOL/L (136-145)
[2025-01-30 19:16] LABS: MAGNESIUM LEVEL 2.3 MG/DL (1.8-2.4)
[2025-01-30] MEDS: POTASSIUM CHLORIDE 10MEQ SR TABLET PO ONE (19:26)
[2025-01-30 19:40] LABS: KETONE, URINE AUTO RFX TRACE mg/dL (NEGATIVE); LEUKOCYTE ESTERASE UR AUTO RFX NEGATIVE (NEGATIVE); NITRITE, URINE AUTO RFX NEGATIVE (NEGATIVE); RBC, URINE AUTO RFX 0 /HPF (0-3); SQUAM EPITHELIAL CELL UR AURFX 0 /HPF (0-6); WBC, URINE AUTO RFX 0 /HPF (0-3)
[2025-01-30] MEDS ORDERED: ADVI200C8 PO (22:52)
[2025-01-30] MEDS ORDERED: OSTETAB2 PO (22:52)
[2025-01-30] MEDS ORDERED: MELA5TAB47 PO (22:52)
[2025-01-30] MEDS ORDERED: HOME MED LIST COMPLETE! XX SCH (22:55)
[2025-01-30] MEDS: LOPERAMIDE 2 MG CAPLET PO ONE (22:56)
[2025-01-30] MEDS ORDERED: ALBUTEROL 90 MCG/ACT 8 GM HFA INHALER INH PRN (23:00)
[2025-01-31] MEDS: GASTROGRAFIN SOLUTION 30ML PO SCH (00:06)
[2025-01-31 00:08] LABS: FREE T4 1.35 NG/DL (0.89-1.76)
[2025-01-31 00:37] LABS: HIV 1&2 SCREEN NEGATIVE (NEGATIVE)
[2025-01-31] MEDS: POTASSIUM CHLORIDE 10MEQ SR TABLET PO SCH (00:42)
[2025-01-31] MEDS ORDERED: ISOVUE-370 76% 100 ML VIAL As Ordered ONE (00:42)
[2025-01-31] MEDS: MONTELUKAST 10 MG TAB PO SCH (00:42)
[2025-01-31] MEDS: KCL 40MEQ in NS 1000ML 1,000 ML IV SCH (00:43)
[2025-01-31 02:44] VITALS: BP 150/85; TEMP 97.9; O2SAT 100
[2025-01-31] MEDS: RAMELTEON 8 MG TAB PO PRN (03:04)
[2025-01-31] MEDS: LOPERAMIDE 2 MG CAPLET PO PRN (03:07)
[2025-01-31 06:10] LABS: PLATELET COUNT, AUTOMATED 274 10^3/uL (150-450)
[2025-01-31 06:32] LABS: CORTISOL AM 15.0 UG/DL (4.3-22.4)
[2025-01-31 06:37] LABS: CALCIUM LEVEL 9.7 MG/DL (8.3-10.6); CARBON DIOXIDE LEVEL 25.0 MMOL/L (20-31); CHLORIDE LEVEL 100.0 MMOL/L (98-107); CREATININE FOR GFR 1.04 MG/DL (0.70-1.30); GLOMERULAR FILTRATION RATE 79.7 (>49); MAGNESIUM LEVEL 2.4 MG/DL (1.8-2.4); POTASSIUM SERUM 3.2 MMOL/L (3.5-5.1); SODIUM LEVEL 140.0 MMOL/L (136-145)
[2025-01-31 08:05] VITALS: BP 148/85; TEMP 98.1; O2SAT 96
[2025-01-31] MEDS: ATORVASTATIN 20 MG TAB PO SCH (08:59)
[2025-01-31] MEDS: FLUTICASONE PROPIONATE 0.05% NASAL SPRAY 16 GM NARES SCH (09:00)
[2025-01-31 11:50] VITALS: BP 156/88; TEMP 97.3; O2SAT 98
[2025-01-31] MEDS: BUDESONIDE EC 3 MG CAP PO SCH (12:28)
[2025-01-31 16:18] VITALS: BP 137/75; TEMP 98.1; O2SAT 97
[2025-01-31 20:25] VITALS: BP 138/76; TEMP 97.3; O2SAT 97
[2025-02-01] VITALS: BP 135/75; TEMP 98.1; O2SAT 96
[2025-02-01 04:00] VITALS: BP 141/72; TEMP 97.7; O2SAT 97
[2025-02-01 07:03] LABS: PLATELET COUNT, AUTOMATED 207 10^3/uL (150-450)
[2025-02-01 07:07] LABS: CALCIUM LEVEL 8.8 MG/DL (8.3-10.6); CARBON DIOXIDE LEVEL 22 MMOL/L (20-31); CHLORIDE LEVEL 109 MMOL/L (98-107); CREATININE FOR GFR 0.71 MG/DL (0.70-1.30); GLOMERULAR FILTRATION RATE > 90.0 (>49); MAGNESIUM LEVEL 2.2 MG/DL (1.8-2.4); POTASSIUM SERUM 3.6 MMOL/L (3.5-5.1); SODIUM LEVEL 143 MMOL/L (136-145)
[2025-02-01 08:00] VITALS: BP 123/75; TEMP 97.9; O2SAT 96
[2025-02-01 12:00] VITALS: BP 128/78; TEMP 97.5; O2SAT 98
[2025-02-01 16:00] VITALS: BP 132/72; TEMP 97.9; O2SAT 96
[2025-02-01 20:39] VITALS: BP 149/94; TEMP 97.9; O2SAT 98
[2025-02-02] VITALS: BP 143/88; TEMP 98.1; O2SAT 97
[2025-02-02] MEDS: ACETAMINOPHEN 325 MG TAB PO PRN (01:26)
[2025-02-02 03:22] VITALS: BP 128/65; TEMP 97.9; O2SAT 97
[2025-02-02 07:11] LABS: PLATELET COUNT, AUTOMATED 192 10^3/uL (150-450)
[2025-02-02 07:34] LABS: CALCIUM LEVEL 8.3 MG/DL (8.3-10.6); CARBON DIOXIDE LEVEL 23 MMOL/L (20-31); CHLORIDE LEVEL 112 MMOL/L (98-107); CREATININE FOR GFR 0.78 MG/DL (0.70-1.30); GLOMERULAR FILTRATION RATE > 90.0 (>49); MAGNESIUM LEVEL 1.9 MG/DL (1.8-2.4); POTASSIUM SERUM 3.9 MMOL/L (3.5-5.1); SODIUM LEVEL 147 MMOL/L (136-145)
[2025-02-02 08:00] VITALS: BP 128/89; TEMP 97.7; O2SAT 97
[2025-02-02] MEDS ORDERED: BUDE3CAP PO (08:39)
[2025-02-02 12:00] VITALS: BP 132/78; TEMP 98.1; O2SAT 98
[2025-02-02] MEDS ORDERED: INDOMETHACIN 25 MG CAP PO ONE (14:00)
[2025-02-03 13:23] LABS: IGASUB2 304 mg/dL (46-378); IGASUB3 > 125 mg/dL (13-91); IgA SERUM (part of Subclasses) 375 mg/dL (70-320)
== END 2025-02-02 13:57 | disposition home or self-care (01) | DRG 641 ==
LOC: M ED 16:23 → M ED INP 22:46 → M MSPAV 01-31 02:43
PROVIDERS: ADMIT Student in an Organized Health Care Education/Training Program; ATTEND Family Medicine
DX: E87.6 Hypokalemia (principal); N17.9 Acute kidney failure, unspecified; K52.831 Collagenous colitis; I49.9 Cardiac arrhythmia, unspecified; E78.5 Hyperlipidemia, unspecified; I10 Essential (primary) hypertension; R11.0 Nausea; M10.9 Gout, unspecified; E83.42 Hypomagnesemia; J43.9 Emphysema, unspecified; M06.9 Rheumatoid arthritis, unspecified; R74.01 Elevation of levels of liver transaminase levels; D72.829 Elevated white blood cell count, unspecified; Z79.899 Other long term (current) drug therapy; K76.0 Fatty (change of) liver, not elsewhere classified

== ENCOUNTER → 2025-03-13 | Outpatient (REF) | payer MEDICARE ==
[~2025-03-13] MED LIST changes: +ADVI200C8 PO; +ALLO300T2; +BUDE3CAP PO; +MELA5TAB47 PO; +OSTETAB2 PO
[2025-03-13 18:21] LABS: BASO # 0.1 10^3/uL (0.0-0.2); BASO % 0.5 % (0.0-1.0); EOS # 0.1 10^3/uL (0.0-0.5); EOS % 0.7 % (0.0-3.0); LYMPH # 2.6 10^3/uL (1.5-5.0); LYMPH % 24.6 % (24.0-44.0); MONO # 0.9 10^3/uL (0.0-0.8); MONO % 8.5 % (2.0-8.0); NEUTROPHILS # 6.8 10^3/uL (1.5-8.5); NEUTROPHILS % 65.4 % (36.0-66.0); PLATELET COUNT, AUTOMATED 287 10^3/uL (150-450)
[2025-03-13 18:28] LABS: IRON (FE) 165 UG/DL (65-175); PERCENT SATURATION 48.8 % (19.7-50.0)
[2025-03-13 18:33] LABS: VITAMIN B12 LEVEL 322 PG/ML (211-911)
[2025-03-13 19:05] LABS: HEPATITIS C VIRUS ABY INDEX < 0.02 INDEX (<0.8)
[2025-03-13 19:07] LABS: ALT/SGPT 24 U/L (7.0-40); AST/SGOT 16 U/L (<34); CALCIUM LEVEL 9.9 MG/DL (8.3-10.6); CARBON DIOXIDE LEVEL 29 MMOL/L (20-31); CHLORIDE LEVEL 106 MMOL/L (98-107); CREATININE FOR GFR 0.79 MG/DL (0.70-1.30); GLOMERULAR FILTRATION RATE > 90.0 (>49); POTASSIUM SERUM 4.0 MMOL/L (3.5-5.1); SODIUM LEVEL 145 MMOL/L (136-145)
[2025-03-15 04:32] LABS: PROTEIN, TOTAL SO 6.5 g/dL (6.1-8.1)
[2025-03-16 14:52] LABS: FREE KAPPA LIGHT CHAINS SERUM 15.1 mg/L (3.3-19.4); FREE LAMBDA LIGHT CHAINS SERUM 17.0 mg/L (5.7-26.3); KAPPA/LAMBDA RATIO SERUM 0.89 (0.26-1.65); T P ELECTROPHORESIS SO 6.5 g/dL (6.1-8.1)
[2025-03-17 08:48] LABS: ALBUMIN SPEP 4.0 g/dL (3.8-4.8); ALPHA-1-GLOBULINS SO 0.3 g/dL (0.2-0.3); ALPHA-2-GLOBULINS SO 0.8 g/dL (0.5-0.9); BETA 2 GLOBULIN 0.4 g/dL (0.2-0.5); BETA-GLOBULIN SO 0.4 g/dL (0.4-0.6); GAMMA GLOBULINS SO 0.6 g/dL (0.8-1.7)
[2025-03-18 06:57] LABS: FREE KAPPA LIGHT CHAINS URINE 3.14 mg/L (<=32.90); FREE LAMBDA LIGHT CHAINS URINE 0.81 mg/L (<=3.79); KAPPA/LAMBDA RATIO URINE 3.88 (<=8.69)
[2025-03-24 08:31] LABS: ALBUMIN SO 4.0 g/dL (3.8-4.8); ALPHA 1 GLOBULINS SO 0.3 g/dL (0.2-0.3); ALPHA 2 GLOBULINS SO 0.8 g/dL (0.5-0.9); BETA 2 GLOBULIN SO 0.4 g/dL (0.2-0.5); BETA GLOBULIN SO 0.4 g/dL (0.4-0.6); GAMMA GLOBULINS SO 0.6 g/dL (0.8-1.7)
== END ==
LOC: M LABDRAWC 17:25
PROVIDERS: ATTEND Specialist
DX: R74.01 Elevation of levels of liver transaminase levels (principal); G47.09 Other insomnia

== ENCOUNTER → 2025-03-24 | Outpatient (CLI) | payer MEDICARE | LOC: M RAD 09:45 | PROVIDERS: ATTEND Specialist | DX: R74.01 Elevation of levels of liver transaminase levels (principal) ==

== ENCOUNTER → 2025-06-24 | Outpatient (REF) | payer MEDICARE ==
[2025-06-24 18:08] LABS: ALT/SGPT 42 U/L (7.0-40); AST/SGOT 26 U/L (<34); CALCIUM LEVEL 9.5 MG/DL (8.3-10.6); CARBON DIOXIDE LEVEL 29 MMOL/L (20-31); CHLORIDE LEVEL 103 MMOL/L (98-107); CHOLESTEROL LEVEL 233 MG/DL (<200); CHOLESTEROL RISK RATIO 3.12 (<5); CREATININE FOR GFR 0.87 MG/DL (0.70-1.30); GLOMERULAR FILTRATION RATE > 90.0 (>49); LDL CHOLESTEROL 130.5 MG/DL (<100); NON-HDL-C 158.5 MG/DL; POTASSIUM SERUM 4.6 MMOL/L (3.5-5.1); PSA SCREENING 0.76 NG/ML (< 4.00); SODIUM LEVEL 142 MMOL/L (136-145); TRIGLYCERIDES LEVEL 140 MG/DL (<150)
== END ==
LOC: M SFHCCLAY 10:44
PROVIDERS: ATTEND Nurse Practitioner Family
DX: I10 Essential (primary) hypertension (principal); J43.9 Emphysema, unspecified; Z87.39 Personal history of other diseases of the musculoskeletal system and connective tissue; E78.5 Hyperlipidemia, unspecified; R74.8 Abnormal levels of other serum enzymes; Z80.42 Family history of malignant neoplasm of prostate; F51.01 Primary insomnia; R76.89 Other specified abnormal immunological findings in serum; Z12.5 Encounter for screening for malignant neoplasm of prostate
CPT/HCPCS: 80053; 80061; 84550; G0103

== ENCOUNTER → 2025-06-29 | Outpatient (REF) | payer MEDICARE | LOC: M SFHCDERM 17:52 | PROVIDERS: ATTEND Physician Assistant | DX: L57.0 Actinic keratosis (principal) ==